=== PATIENT | male | born 1995 | race Hispanic/Latino ===

== ENCOUNTER 2019-01-31 15:06 | Emergency (ER) | payer SELFPAY ==
[2019-01-31] MEDS ORDERED: KETOROLAC TROMETHAMINE 60 MG/2 ML VIAL ONE (15:57)
== END 2019-01-31 16:14 | disposition home or self-care (01) ==
LOC: EDH 15:06
DX: M25.561 Pain in right knee (principal)
CPT/HCPCS: 73562; 96372; 99284; J1885

== ENCOUNTER 2021-03-23 14:27 | Emergency (ER) | payer OTHER ==
[~2021-03-23] VITALS: Ht 162.6 cm; Wt 136.1 kg
[2021-03-23 14:35] VITALS: BP 143/86
[2021-03-23] MEDS ORDERED: CYCL5TAB PO (16:53)
[2021-03-23] MEDS ORDERED: IBUP-2070 PO (16:53)
[2021-03-23] MEDS ORDERED: KETOROLAC 30MG VIAL (30MG/ML) IM ONE (17:00)
[2021-03-23 17:22] VITALS: BP 126/84
== END 2021-03-23 17:30 | disposition home or self-care (01) ==
LOC: EDH 14:27
DX: S83.8X1A Sprain of other specified parts of right knee, initial encounter (principal); S93.492A Sprain of other ligament of left ankle, initial encounter; J45.909 Unspecified asthma, uncomplicated; Z72.0 Tobacco use; Z79.899 Other long term (current) drug therapy; X50.1XXA Overexertion from prolonged static or awkward postures, initial encounter; Y93.89 Activity, other specified; Y92.89 Other specified places as the place of occurrence of the external cause; Y99.8 Other external cause status
CPT/HCPCS: 73562; 73600